=== PATIENT | male | born 1960 | race Asian ===

== ENCOUNTER 2018-11-23 10:15 | Observation (INO) | payer BC ==
[~2018-11-23] VITALS: Ht 170.2 cm; Wt 67.5 kg
[2018-11-23] VITALS (23 sets, daily range): BP systolic 127–143; BP diastolic 82–96; PULSE 68–94; RESP 10–19; Ht 170.2 cm; Wt 67.5 kg
[~2018-11-23 10:15] MED LIST: AMLO-145 ORAL; ENAL5TAB; LINA5TAB PO; MTF1000T PO; SIMV20TA PO; TAMS-14 PO
[2018-11-23] MEDS ORDERED: CEFTRIAXONE 1 GM/NS 50 ML IVPB SCH (12:30)
[2018-11-23] MEDS ORDERED: MIDAZOLAM 1 MG/ML 2 ML INJ ONE (12:51)
[2018-11-23] MEDS ORDERED: SEVOFLURANE 15 MIN ONE (13:00)
[2018-11-23] MEDS ORDERED: PHENYLephrine 10 MG INJ ONE (14:52)
[2018-11-23] MEDS ORDERED: LIDOCAINE 2% (SDV) 5 ML INJ ONE (15:45)
[2018-11-23] MEDS ORDERED: PROPOFOL 20 ML ONE (15:45)
[2018-11-23] MEDS ORDERED: ONDANSETRON 4 MG INJ ONE (15:46)
[2018-11-23] MEDS ORDERED: DEXTROSE 5%-0.45% NACL 1,000 ML IV SCH (15:54)
[2018-11-23] MEDS: HYDROmorphONE 1 MG/5 ML IV SYRINGE IV PRN ×2 (16:25→16:34)
[2018-11-23] MEDS ORDERED: GLUCOSE GEL 15 GRAM TUBE PO PRN ×2 (16:30)
[2018-11-23] MEDS ORDERED: LABETALOL HCL 20MG INJ IV PRN (16:30)
[2018-11-23] MEDS ORDERED: GLUCAGON 1 MG INJ IM PRN (16:30)
[2018-11-23] MEDS ORDERED: DIPHENHYDRAMINE 50 MG INJ IV PRN (16:30)
[2018-11-23] MEDS ORDERED: FENTAnyl 50 MCG/ML VIAL IV PRN (16:30)
[2018-11-23] MEDS ORDERED: DEXTROSE 50% 50 ML SYRINGE IV PRN ×2 (16:30)
[2018-11-23] MEDS ORDERED: ONDANSETRON 4 MG INJ IV PRN (16:30)
[2018-11-23] MEDS ORDERED: GLUCOSE GEL 15 GRAM TUBE BUCCAL PRN (16:30)
[2018-11-23] MEDS ORDERED: METOCLOPRAMIDE 10 MG INJ IV PRN (16:30)
[2018-11-23] MEDS ORDERED: MEPERIDINE 25 MG INJ IV PRN (16:30)
[2018-11-23] MEDS ORDERED: HYDROmorphONE 1 MG/5 ML IV SYRINGE IV PRN (16:30)
[2018-11-23] MEDS: LINAGLIPTIN 5 MG TABLET PO SCH (16:41)
[2018-11-23] MEDS: AMLODIPINE 5 MG TAB PO SCH (16:42)
[2018-11-23] MEDS: ENALAPRIL 5 MG TAB PO SCH (16:42)
[2018-11-23] MEDS ORDERED: HYDROCODONE/APAP (5/325) TAB PO PRN (17:30)
[2018-11-23] MEDS: metFORMIN 500 MG TAB PO SCH (17:57)
[2018-11-23] MEDS: DOCUSATE SODIUM 100 MG CAP PO SCH (21:00)
[2018-11-24 04:00] VITALS: BP 133/81; PULSE 80; RESP 18
[2018-11-24 07:36] VITALS: BP 121/86; PULSE 73; RESP 18
[2018-11-24] MEDS: ENALAPRIL 5 MG TAB PO SCH (08:28)
[2018-11-24] MEDS: DOCUSATE SODIUM 100 MG CAP PO SCH ×2 (08:28→20:49)
[2018-11-24] MEDS: LINAGLIPTIN 5 MG TABLET PO SCH (08:28)
[2018-11-24] MEDS: AMLODIPINE 5 MG TAB PO SCH (08:29)
[2018-11-24] MEDS: metFORMIN 500 MG TAB PO SCH ×2 (08:31→17:47)
[2018-11-24] MEDS: INSULIN ASPART [NOVOLOG] 3 ML PEN SC SCH ×3 (11:40→20:48)
[2018-11-24 13:52] VITALS: BP 130/82; PULSE 86; RESP 18
[2018-11-24 19:51] VITALS: BP 140/80; PULSE 97; RESP 18
[2018-11-25] MEDS ORDERED: ACCU-CHEK XX SCH (02:00)
[2018-11-25 02:02] VITALS: BP 131/94; PULSE 88; RESP 18
[2018-11-25] MEDS: INSULIN ASPART [NOVOLOG] 3 ML PEN SC SCH (07:50)
[2018-11-25 08:15] VITALS: BP 145/81; PULSE 73; RESP 18
[2018-11-25] MEDS: DOCUSATE SODIUM 100 MG CAP PO SCH (09:00)
[2018-11-25] MEDS: metFORMIN 500 MG TAB PO SCH (09:00)
[2018-11-25] MEDS: LINAGLIPTIN 5 MG TABLET PO SCH (09:00)
[2018-11-25] MEDS: ENALAPRIL 5 MG TAB PO SCH (09:00)
[2018-11-25] MEDS: AMLODIPINE 5 MG TAB PO SCH (09:01)
== END 2018-11-25 12:54 | disposition home or self-care (01) ==
LOC: SDS 10:15 → REC 15:56 → INTOOBSV 15:56 → SDS 15:56 → MS1 17:57
PROVIDERS: ADMIT Urology; ATTEND Urology
DX: N40.1 Benign prostatic hyperplasia with lower urinary tract symptoms (principal); N41.1 Chronic prostatitis; I10 Essential (primary) hypertension; E11.9 Type 2 diabetes mellitus without complications; E78.5 Hyperlipidemia, unspecified; D64.9 Anemia, unspecified
CPT/HCPCS: 52601; 80048; 82962; 83735; 84100; 85025; 87086; 88305; 99217; G0378; J0696; J1170; J1815; J2250; J2405; J3010; J2370; J7042